=== PATIENT | male | born 1985 | race Caucasian/White ===

== ENCOUNTER 2017-06-29 07:56 | Emergency (ER) | payer OTHER, MEDICAID, SELFPAY ==
[2017-06-29 07:58] VITALS: BP 152/89; PULSE 128; RESP 16; TEMP 36.8; O2SAT 100; BMI 26.3
--- NOTE | 2017-06-29 08:07 | ED.RN ---
Addendum entered by Malini Link 06/29/17 08:08: [id number] Original Note: CALLED PRASHANTH [facility]OZ[facility] PT SENIOR QUALITY ANALYST FOR [facility]. CONFIRM NO DRUG SCREEN REQUIRED AND [facility] FOR FOLLOWUP.
--- NOTE | 2017-06-29 08:13 | ED.DCSUM_ITS ---
- ER Visit Summary Date of Service: 06/29/17 Chief Complaint: Scalp laceration status post mechanical fall History of Present Illness: The patient is a 32 M who slipped while at work. Fell backwards striking a pipe. He states he was not dazed nor did he have loss conscious. He denies any visual, ocular or auditory symptoms. He denies any neck pain. He denies paresthesia, anesthesia moderates present time of the injury. He denies nausea or vomiting. He denies any cardio respiratory symptoms. Tetanus was 2-3 years ago. Physical Examination: Vital signs are marked for an elevated blood pressure of 152/89 heart rate of 128. Patient has a 1 cm superficial laceration occiput. There is no active bleeding at the time of examination. There is no clinical findings of basal skull fracture. There is no palpable depression. Pupils equal round reactive. Extra muscle intact. There is no pain palpation of cervical spine and he has full active range of motion with no limitation or discomfort. Heart is regular. GCS is 15 and neuro exam is nonfocal. Please read written note for complete detail Test Results: None were indicated Emergency Department Course and Treatment: Wound care Treatment Plan: Appropriate home-going instruction and follow-up with [facility] Disposition: Discharged to home Impression: Mechanical fall with injury initial encounter Superficial scalp laceration 1 cm This note was generated with [employer] dictation software. It may contain incorrect words, spelling, and punctuation that were not noted in review of the chart prior to signing ED Disposition - Plan for ED Patient: Disposition: Home or Assisted Living Chief Complaint: Fall Instructions: ED Mechanical Fall, ED Laceration Small Superf No Sutr Referrals: Bronson Cisneros PA [Primary Care Provider] - [facility] [GROUP OF PHYSICIANS] - 2 Days for wound check
[2017-06-29 08:14] VITALS: BP 150/92; PULSE 127; RESP 14; O2SAT 96
== END 2017-06-29 08:30 | disposition home or self-care (01) ==
LOC: ED 08:23
PROVIDERS: Emergency Provider Emergency Medicine; Family Provider Physician Assistant; PCP Physician Assistant
DX: S01.01XA Laceration without foreign body of scalp, initial encounter (principal); Z72.0 Tobacco use; W01.198A Fall on same level from slipping, tripping and stumbling with subsequent striking against other object, initial encounter; Y93.89 Activity, other specified; Y92.89 Other specified places as the place of occurrence of the external cause; Y99.0 Civilian activity done for income or pay
CPT/HCPCS: 99283

== ENCOUNTER 2021-02-09 09:21 | Emergency (ER) | payer MEDICAID, SELFPAY ==
[2021-02-09 09:24] VITALS: BP 149/100; PULSE 79; RESP 16; TEMP 35.7; BMI 23.8
[2021-02-09] MEDS: diazePAM 5 MG Tablet 2.5 MG PO (09:51)
[2021-02-09] MEDS: Ondansetron 4 MG/2 ML Vial IV (09:53)
[2021-02-09] MEDS: Ketorolac 15 MG/ML Vial IV (09:53)
[2021-02-09] MEDS: morphine 8 MG/ML Syringe IV (09:54)
--- NOTE | 2021-02-09 10:02 | ED.VIS.BACK ---
HPI History of Present Illness Chief Complaint: Back Detail of Chief Complaint: Left low back pain with sciatica Informant: patient Onset/Context/Timing Onset: Yesterday (Acute exacerbation) Chronic pain exacerbated by: Patient states he tweaked it when he bent over. Injury: bending Timing: Continuous and Waxes and wanes Quality: - (Pain left low back down to his foot) Location: Lumbar, Buttock and Left Leg Current Severity: Moderate Maximum Severity: Severe Worsened by: improves with Movement, Ambulation, Bending and Lifting Relieved by: Nothing Associated Symptoms Associated Symptoms: Radiation to Right Leg and - (No recent dental procedure. No recent trauma.); Negative for Numbness, Tingling, Radiation to Left Leg, Fever, Abdominal Pain, Dysuria, Unable to Ambulate, Unable to Transfer, Urinary Retention, Urinary Incontinence, Constipation and Fecal Incontinence Narrative Narrative: Patient is a 36-year-old male who had an MRI performed at facility in [place] 2 weeks ago. He states he has pinched nerves. He is scheduled for epidural injection. He denies bowel bladder dysfunction. He does report radicular pain consistent with sciatica. He denies foot drop. He does not have steps to determine if he has buckling of his knees going up or down steps. He denies numbness or tingling in the perineal region. He denies fever or chills. Prior similar symptoms: Yes Recent Illness/Hospitalization: No PFSH PFSH Medical History (Updated 02/09/21 @ 10:[address] Christopher Bautista MD) Sciatica Home Medications diazepam [Valium] 5 mg PO TID PRN 3 Days #7 tab 02/09/21 [Rx Last Taken Unknown] Allergy/AdvReac Type Severity Reaction Status Date / Time No Known Allergies Allergy Verified 02/09/21 09:24 Social History (Updated 02/09/21 @ 10:[address] Christopher Bautista MD) Smoking Status: Never smoker alcohol intake: never substance use type: does not use ROS ROS ED Constitutional Constitutional ED: Denies chills, fever(s), subjective, sweats or weight loss Eyes Eyes: Denies blurry vision or change in vision Cardiovascular Cardiovascular: Denies chest pain, palpitations or racing heartbeat Respiratory/Chest Respiratory/Chest: Denies dyspnea or dyspnea on exertion Gastrointestinal Gastrointestinal: Denies abdominal pain, constipation, diarrhea, melena, nausea or vomiting Genitourinary Genitourinary ED: Denies dysuria, hematuria or urinary frequency Musculoskeletal Musculoskeletal: Reports back pain; Denies arthralgias, myalgias or neck pain Integumentary Denies rash Neurologic Neurologic: Denies paresthesias or weakness Hematologic/Lymphatic Hematologic/Lymphatic: Denies easy bleeding or easy bruising EXAM Physical Exam Const Vital Signs: 02/09/21 09:24 Temperature 96.2 F L Temperature Source Temporal Pulse Rate 79 Respiratory Rate 16 Blood Pressure 149/100 H Blood Pressure Mean 116 Positive well nourished and well developed General Appearance ED: well developed and other Patient appears uncomfortable. He is lying on his right side with his hips and knee in flexion. HEENT Reports moist mucous membranes HEENT Narrative: Head is atraumatic normocephalic. External ear exam is normal. Eyes PERRL and EOMs intact bilaterally General Eye ED: Negative for pale conjunctiva or scleral icterus Resp normal respiratory effort and clear to auscultation bilaterally Cardio regular rate, regular rhythm, S1 normal heart sound, S2 normal heart sound and no murmurs GI normal to inspection, nondistended, normoactive bowel sounds, soft to palpation, non-tender and non-distended Palpation: Negative for hepatomegaly, splenomegaly or pulsatile mass Back/Spine normal to inspection; Negative for no thoracic nor lumbar tenderness General Back: Negative for CVA tenderness Cervical Spine: paracervical muscle tenderness Lumbar Spine / Lower Back: straight leg raise positive - left at 40 degrees and other (Patient had a positive crossover test.) Extremity normal to inspection and no clubbing, cyanosis or edema General Extremety ED: Negative for edema or tenderness General Extremity: Negative for edema Neuro oriented x3 Neuro Narrative: EHL is intact bilaterally. Sensorium / Orientation: alert; Negative for confused Deep Tendon Reflexes: Rt Patellar (L4): 3+, Lt Patellar (L4): 3+, Rt Ankle (S1): 3+ and Lt Ankle (S1): 3+ Deep Tendon Reflexes Back: Rt Patellar (L4): 3+, Lt Patellar (L4): 3+, Rt Ankle (S1): 3+ and Lt Ankle (S1): 3+ Plantar Reflex: Downgoing: bilateral Psych mental status grossly normal Skin no rashes or lesions noted and no wounds MDM MDM MDM Narrative Medical decision making narrative: Patient attempting to get report of most recent MRI. Patient was medicated with Toradol, morphine and Valium. The MRI report was obtained. Patient has minimal disease. There is 2 mm bulge and foramen narrowing of the L4-5 nerve root. This would explain patient's positive straight leg test and crossover test. Patient improved markedly after therapy. Plan is to discharge with prescription for anti-inflammatory and Valium. He was instructed to call his pain management physician on Wednesday. Discharge Plan Triage Chief Complaint: Back ED Provider: Christopher Bautista Dx/Rx/DC Orders Clinical Impression: Left-sided low back pain with left-sided sciatica Instructions: ED Sciatica Prescriptions: New diazepam [Valium] 5 mg tablet 5 mg PO TID PRN (Reason: muscle spasm) 3 Days Qty: 7 RF: 0 Referrals: Winston Ann [Other] - 3-5 Days if not improving Disposition Disposition: Home, Self Care
[2021-02-09 11:05] VITALS: BP 134/90; PULSE 68; RESP 14; O2SAT 98
== END 2021-02-09 11:05 | disposition home or self-care (01) ==
PROVIDERS: Emergency Provider Emergency Medicine
DX: M54.42 Lumbago with sciatica, left side (principal)
CPT/HCPCS: 96374; 96375; 99284; A4216; J2405